=== PATIENT | female | born 2000 | race Caucasian/White ===

== ENCOUNTER 2021-05-13 16:14 | Emergency (ER) | payer BC ==
[~2021-05-13] VITALS: Ht 167.6 cm; Wt 85.7 kg
--- NOTE | 2021-05-13 17:21 | NUR ---
URINE COLLECTED AND SENT TO THE LAB
[2021-05-13 17:22] LABS: BASOPHILS % (AUTO) 0.6 % (0.0-2.0); EOSINOPHILS % (AUTO) 0.7 % (0.0-6.0); HEMATOCRIT 38 % (33-45); HEMOGLOBIN 12.8 g/dL (11.5-14.8); MEAN CORPUSCULAR HGB CONC 34 g/dl (31.0-36.0); MEAN CORPUSCULAR VOLUME 92 fL (82-100); MONOCYTES # (AUTO) 0.5 K/uL (0.1-1.30); MONOCYTES % (AUTO) 8.2 % (2.0-12.0); NEUTROPHILS % (AUTO) 60.5 % (43.0-81.0); PLATELET COUNT (AUTO) 242 K/uL (150-450); WHITE BLOOD COUNT (AUTO) 6.6 K/uL (4.3-11.0)
[2021-05-13 17:33] LABS: CALCIUM, SERUM 8.6 mg/dL (8.5-10.1); CARBON DIOXIDE 24 mmol/L (21-32); CHLORIDE 106 mmol/L (98-107); CREATININE 0.7 mg/dL (0.6-1.3); GLUCOSE 85 mg/dL (74-106); SODIUM SERUM 140 mmol/L (136-145); UREA NITROGEN, BLOOD 17 mg/dL (7-18)
[2021-05-13] MEDS ORDERED: IV NS 0.9% 250 ML IV ONE (17:35)
[2021-05-13] MEDS ORDERED: IOHEXOL-350 100 ML VIAL IV ONE (17:35)
[2021-05-13] MEDS ORDERED: KETOROLAC TROMETHAMINE 15 MG/ML VIAL ONE (17:40)
[2021-05-13] MEDS: KETOROLAC TROMETHAMINE INJ 30 MG/ML VIAL IV ONE (17:42)
--- NOTE | 2021-05-13 17:58 | NUR ---
THE PATIENT IS TAKEN TO CT
--- NOTE | 2021-05-13 18:05 | NUR ---
THE PATIENT IS BACK FROM CT
[2021-05-13] MEDS ORDERED: AZIT250T13 PO (18:25)
[2021-05-13 18:49] VITALS: BP 121/75
--- NOTE | 2021-05-13 18:49 | NUR ---
Patient discharged to home in stable condition. Written and verbal after care instructions given. Patient verbalizes understanding of instruction.
== END 2021-05-13 18:50 | disposition home or self-care (01) ==
LOC: ER 16:18
DX: J18.9 Pneumonia, unspecified organism (principal); Z79.899 Other long term (current) drug therapy
CPT/HCPCS: 36415; 71045; 71275; 80048; 84484; 84703; 85025; 85378; 93005 ×3; 96374; 99285; J1885; J7050; Q9967